=== PATIENT | female | born 1980 | race African-American/Black ===

== ENCOUNTER 2017-07-28 09:30 | Outpatient (CLI) | payer OTHER | END 2017-07-28 10:52 | disposition home or self-care (01) | LOC: M LDO 09:30 | DX: O47.03 False labor before 37 completed weeks of gestation, third trimester (principal); Z3A.36 36 weeks gestation of pregnancy | CPT/HCPCS: 59025 ==

== ENCOUNTER 2017-08-24 01:02 | Inpatient (IN) | payer OTHER ==
[2017-08-24] MEDS: LACTATED RINGER'S 1000 ML IV ×2 (01:25→15:45)
[2017-08-24 01:46] LABS: HEMATOCRIT 34.9 % (36.0-47.0); HEMOGLOBIN 11.3 g/dl (12.0-15.5); MEAN CORPUSCULAR HGB CONC 32.4 g/dl (32.0-36.5); MEAN CORPUSCULAR VOLUME 86.4 fl (80.0-96.0); PLATELET COUNT, AUTOMATED 235 10^3/uL (150-450); RED BLOOD COUNT 4.04 10^6/uL (4.00-5.40); RED CELL DISTRIBUTION WIDTH 13.4 % (11.5-14.5); WHITE BLOOD COUNT 6.6 10^3/uL (4.0-10.0)
[2017-08-24] MEDS ORDERED: FENTANYL 2MCG/ML ROPIVACAINE 0.2% IN 0.9% NACL 200ML IVBAG As Ordered (01:55)
[2017-08-24] MEDS ORDERED: OXYTOCIN 30 UNITS IN 0.9% NaCl 500ML IV BAG (J2590) As Ordered (01:55)
[2017-08-24] MEDS: LR 1,000 ML IV ×4 (02:50→18:15)
[2017-08-24] MEDS ORDERED: REFRIGERATOR IV KEYS XX (03:08)
[2017-08-24] MEDS ORDERED: EPIDURAL COMMENT XX (03:08)
[2017-08-24] MEDS ORDERED: ONDANSETRON 4MG/2ML VIAL (J2405) IV ×2 (03:08→18:15)
[2017-08-24] MEDS ORDERED: FENTANYL/ROPIVACAINE/NACL BAG 200 ML EPIDURAL (03:08)
[2017-08-24] MEDS ORDERED: NALOXONE INJ 0.4 MG/1 ML VIAL (J2310) IV ×3 (03:08→16:46)
[2017-08-24] MEDS ORDERED: diphenhydrAMINE INJ 50MG/ML VIAL (J1200) IV (03:08)
[2017-08-24] MEDS ORDERED: ePHEDrine SULFATE 25 MG/5 ML(5MG/ML) SYRINGE IV (03:08)
[2017-08-24] MEDS ORDERED: LACTATED RINGER'S 1000 ML IV (03:08)
[2017-08-24] MEDS ORDERED: EPIDURAL/PCA KEYS XX (03:08)
[2017-08-24] MEDS ORDERED: OXYTOCIN DRIP 30 UNITS in APPROPRIATE DILUENT 1 EA IV (07:30)
[2017-08-24] MEDS ORDERED: LR 1,000 ML IV (15:31)
[2017-08-24] MEDS: BUPIVACAINE HCL 0.25% 10 ML VIAL SC (15:45)
[2017-08-24] MEDS: AZITHROMYCIN INJ 500 MG, VIAL MATE ADAPTER 1 EACH in D5W 250 ML IV (15:45)
[2017-08-24] MEDS: ACETAMINOPHEN 650 MG SUPP PR (15:45)
[2017-08-24] MEDS: BICITRA 30ML SOLN UDC PO (15:45)
[2017-08-24] MEDS ORDERED: LIDOCAINE 2% W/EPIN INJ 20ML **PRES FREE As Ordered (16:45)
[2017-08-24] MEDS ORDERED: LIDOCAINE PRES-FREE 2% 10ML AMP As Ordered (16:45)
[2017-08-24] MEDS ORDERED: MORPHINE PRES-FREE INJ 10 MG/10 ML VIAL (J2274) As Ordered (16:46)
[2017-08-24 17:18] LABS: CORD GAS HCO3 A 21.1 MEQ/L; CORD GAS O2 SAT A < 15.0 %; CORD GAS TCO2 A 23.2 MEQ/L
[2017-08-24 17:20] LABS: CORD GAS ABE V -9.8; CORD GAS HCO3 V 20.5 MEQ/L; CORD GAS PCO2 V 63.3 mmHg; CORD GAS PH V 7.129 UNITS; CORD GAS PO2 V 11.8 mmHg; CORD GAS TCO2 V 22.5 MEQ/L
[2017-08-24 17:21] LABS: CORD GAS ABE A -9.8; CORD GAS PH A 7.109 UNITS; CORD GAS PO2 A 11.7 mmHg
[2017-08-24] MEDS ORDERED: fentaNYL 100 MCG/2 ML INJECTION (J3010) As Ordered (17:24)
[2017-08-24] MEDS ORDERED: DOCUSATE SODIUM 100 MG CAP PO (17:45)
[2017-08-24] MEDS ORDERED: PERCOCET 5MG/325MG TAB PO (17:45)
[2017-08-24] MEDS ORDERED: MOM 30ML SUSPENSION UDC PO (17:45)
[2017-08-24] MEDS ORDERED: METHYLERGONOVINE MALEATE 0.2 MG TAB PO (17:45)
[2017-08-24] MEDS ORDERED: ANUSOL HC CREAM 30GM TOP (17:45)
[2017-08-24] MEDS: KETOROLAC 30 MG/ML VIAL (J1885) IV ×2 (18:00→20:00)
[2017-08-24] MEDS ORDERED: MEPERIDINE INJ 25 MG/ML VIAL (J2175) IV (18:15)
[2017-08-24] MEDS ORDERED: fentaNYL 100 MCG/2 ML INJECTION (J3010) IV (18:15)
[2017-08-24] MEDS ORDERED: METOCLOPRAMIDE INJ 10MG/2ML VIAL (J2765) IV (18:15)
[2017-08-24] MEDS: PERCOCET 5MG/325MG TAB PO (20:00)
[2017-08-25] MEDS: NALBUPHINE HCL 10 MG/ML AMP (J2300) IV ×2 (00:09→04:52)
[2017-08-25] MEDS: ONDANSETRON 4MG/2ML VIAL (J2405) IV ×2 (00:09→08:32)
[2017-08-25] MEDS: MEASLES,MUMPS,RUBELLA VACCINE INJ (MMR-II) (90707) SC (00:27)
[2017-08-25] MEDS: RHOGAM 300 MCG (1500 IU) INJ (J2790) IM (00:27)
[2017-08-25] MEDS: KETOROLAC 30 MG/ML VIAL (J1885) IV ×3 (01:15→14:03)
[2017-08-25] MEDS: METOCLOPRAMIDE INJ 10MG/2ML VIAL (J2765) IV (01:15)
[2017-08-25] MEDS: LR 500 ML IV (04:15)
[2017-08-25 07:18] LABS: HEMATOCRIT 26.1 % (36.0-47.0); MEAN CORPUSCULAR HEMOGLOBIN 28.3 pg (27.0-33.0); MEAN CORPUSCULAR VOLUME 85.9 fl (80.0-96.0); PLATELET COUNT, AUTOMATED 194 10^3/uL (150-450); RED BLOOD COUNT 3.04 10^6/uL (4.00-5.40); RED CELL DISTRIBUTION WIDTH 13.5 % (11.5-14.5); WHITE BLOOD COUNT 11.3 10^3/uL (4.0-10.0)
[2017-08-25 07:26] LABS: HEMOGLOBIN 8.6 g/dl (12.0-15.5)
[2017-08-25] MEDS: PRENATAL VITAMINS CHEWABLE TABLET PO (08:55)
[2017-08-25] MEDS: IBUPROFEN 800 MG TAB PO (22:08)
[2017-08-26] MEDS: IBUPROFEN 800 MG TAB PO (06:03)
[2017-08-26] MEDS: PRENATAL VITAMINS CHEWABLE TABLET PO (08:08)
== END 2017-08-26 13:05 | disposition home or self-care (01) | DRG 766 ==
LOC: M LDO 01:02 → M LDI 01:24 → M OBS 19:32
PROVIDERS: Obstetrics & Gynecology
PROC: 10D00Z1 Extraction of Products of Conception, Low, Open Approach (ICD-10-PCS; principal; 2017-08-24 07:25)
PROC: 0UL70DZ Occlusion of Bilateral Fallopian Tubes with Intraluminal Device, Open Approach (ICD-10-PCS; 2017-08-24 07:25)
DX: O48.0 Post-term pregnancy (principal); Z37.0 Single live birth; Z3A.40 40 weeks gestation of pregnancy; O09.523 Supervision of elderly multigravida, third trimester; Z88.2 Allergy status to sulfonamides; Z30.2 Encounter for sterilization; O62.0 Primary inadequate contractions; O76 Abnormality in fetal heart rate and rhythm complicating labor and delivery; O32.4XX0 Maternal care for high head at term, not applicable or unspecified

== ENCOUNTER → 2018-07-06 | Outpatient (REF) | payer OTHER ==
[~2018-07-06] MED LIST: ANUS2.5C2 TOP; COLA100C5 PO; IBUP-1114 PO; MAPA500T2 PO; OXYC1TAB23 PO; PRENTAB9 PO; TUMS500C PO
== END ==
LOC: M SFHCLERA 14:02
PROVIDERS: ATTEND Nurse Practitioner Family
DX: R50.9 Fever, unspecified (principal)